=== PATIENT | female | born 1990 | race Caucasian/White ===

== ENCOUNTER → 2017-08-02 15:08 | Outpatient (CLI) | payer OTHER, SELFPAY ==
[2017-08-02 16:30] LABS: Absolute Lymphocyte Count 2.91 X10^3/ul (0.83-4.51); Absolute Neutrophil Count 6.7 X10^3/uL (2.0-7.7); Basophil# 0.01 X10^3/uL; Basophil% 0.1 % (0-1); Eosinophil# 0.16 X10^3/uL; Eosinophils% 1.4 % (0-5); Hematocrit 37.3 % (37-47); Hemoglobin 12.8 g/dl (12.0-15.0); Lymphocyte # 2.91 X10^3/ul (4.0); Lymphocyte % 25.7 % (19-41); Mean Corp Hgb Conc 34.3 g/gl (32-36); Mean Corpuscular Hgb 28.6 pg (27.0-32.0); Mean Corpuscular Volume 83.4 fL (81-99); Mean Platelet Vol. 10.6 fl (6.2-12.0); Monocyte# 1.52 X10^3/uL; Monocyte% 13.4 % (0-10); Neutrophil % 59.2 % (47-70); Platelet Count 326 K/mm3 (150-450); RBC Distribution Width CV 12.2 % (11.6-14.6); RBC Distribution Width SD 36.7 fl (35.1-43.9); Red Blood Count 4.47 M/mm3 (4.2-5.4); White Blood Count 11.3 K/mm3 (4.4-11.0)
[2017-08-02 16:31] LABS: Differential Indicated SCAN CRITERIA MET; POSITIVE COUNT NO; POSITIVE DIFFERENTIAL YES; POSITIVE MORPHOLOGY NO
[2017-08-02 16:55] LABS: Differential Comment SCANNED
[2017-08-02 17:18] LABS: HIV - WCH Non-Reactive (Nonreactive); Rubella IgG 158.2 IU/mL
[2017-08-02 19:44] LABS: Chlamydia Trachomatis by PCR Negative (Negative); Neisserai gonorrhoeae by PCR Negative (Negative); Probe Check PASS; Sample Adequacy Control PASS; Specimen Processing Control PASS
[2017-08-04 05:19] LABS: Rapid Plasmin Reagin (RPR) NONREACTIVE (NONREACTIVE)
[2017-08-04 09:05] LABS: HEPATITIS B SURFACE AG Negative (Negative)
== END ==
PROVIDERS: Visit Provider Obstetrics & Gynecology
DX: Z34.90 Encounter for supervision of normal pregnancy, unspecified, unspecified trimester (principal)
CPT/HCPCS: 36415; 85025; 86592; 86703; 86762; 86850; 86900; 87086; 87340; 87491; 87591

== ENCOUNTER → 2017-11-17 16:22 | Outpatient (CLI) | payer OTHER, SELFPAY | PROVIDERS: Family Provider Family Medicine; PCP Family Medicine; Referring Provider Physician Assistant; Visit Provider Physician Assistant | DX: J02.9 Acute pharyngitis, unspecified (principal) | CPT/HCPCS: 87081 ==

== ENCOUNTER → 2017-12-18 16:46 | Outpatient (CLI) | payer OTHER, SELFPAY ==
[2017-12-18 17:33] LABS: Glucose Challenge Gest 1H 50g 127 mg/dL (70-140)
[2017-12-18 17:36] LABS: Absolute Lymphocyte Count 2.81 X10^3/ul (0.83-4.51); Absolute Neutrophil Count 8.7 X10^3/uL (2.0-7.7); Basophil# 0.01 X10^3/uL; Basophil% 0.1 % (0-1); Eosinophil# 0.14 X10^3/uL; Eosinophils% 1.1 % (0-5); Hematocrit 30.6 % (37-47); Hemoglobin 10.5 g/dl (12.0-15.0); Lymphocyte # 2.81 X10^3/ul (4.0); Lymphocyte % 21.4 % (19-41); Mean Corp Hgb Conc 34.3 g/gl (32-36); Mean Corpuscular Hgb 29.6 pg (27.0-32.0); Mean Corpuscular Volume 86.2 fL (81-99); Mean Platelet Vol. 9.7 fl (6.2-12.0); Monocyte# 1.38 X10^3/uL; Monocyte% 10.5 % (0-10); Neutrophil # 8.71 X10^3/uL (2.7-7.7); Neutrophil % 66.1 % (47-70); Platelet Count 306 K/mm3 (150-450); RBC Distribution Width CV 12.4 % (11.6-14.6); RBC Distribution Width SD 37.3 fl (35.1-43.9); Red Blood Count 3.55 M/mm3 (4.2-5.4); White Blood Count 13.2 K/mm3 (4.4-11.0)
[2017-12-18 17:38] LABS: POSITIVE COUNT NO; POSITIVE DIFFERENTIAL NO; POSITIVE MORPHOLOGY NO
== END ==
PROVIDERS: Nurse Practitioner Women's Health; Family Provider Family Medicine; PCP Family Medicine; Referring Provider Obstetrics & Gynecology; Visit Provider Obstetrics & Gynecology
DX: Z34.90 Encounter for supervision of normal pregnancy, unspecified, unspecified trimester (principal)
CPT/HCPCS: 36415; 82950; 85025

== ENCOUNTER → 2018-02-15 17:51 | Outpatient (CLI) | payer OTHER, SELFPAY ==
[2018-02-15 15:29] VITALS: BMI 26.9
== END ==
PROVIDERS: Family Provider Family Medicine; PCP Family Medicine; Visit Provider Obstetrics & Gynecology
DX: O09.93 Supervision of high risk pregnancy, unspecified, third trimester (principal); Z3A.00 Weeks of gestation of pregnancy not specified
CPT/HCPCS: 87081

== ENCOUNTER 2018-03-19 11:40 | Inpatient (IN) | payer OTHER, SELFPAY ==
[2018-03-16 14:52] VITALS: BMI 26.6
[2018-03-19 11:31] VITALS: BMI 26.4
[2018-03-19 11:41] LABS: ROM Internal Control Test YES-OK TO RESULT pt. (Internal QC); ROM Patient Test POSITIVE (Negative); Record Kit Lot#, ROM+ J7836
[2018-03-19 12:18] LABS: Hematocrit 36.3 % (37-47); Hemoglobin 12.3 g/dl (12.0-15.0); Mean Corp Hgb Conc 33.9 g/gl (32-36); Mean Corpuscular Hgb 29.1 pg (27.0-32.0); Mean Platelet Vol. 10.5 fl (6.2-12.0); Platelet Count 288 K/mm3 (150-450); RBC Distribution Width CV 12.9 % (11.6-14.6); RBC Distribution Width SD 40.3 fl (35.1-43.9); Red Blood Count 4.22 M/mm3 (4.2-5.4); Scan Indicated on CBC? Y/N NO; White Blood Count 11.8 K/mm3 (4.4-11.0)
[2018-03-19] MEDS: miSOPROStol 25 MCG TABLET PO ×2 (12:53→17:26)
[2018-03-19] MEDS: Lactated Ringers 1,000 ML 50 ML IV ×2 (12:54→19:22)
--- NOTE | 2018-03-19 18:21 | PCM.HP.OB ---
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 plan local delivery. (3) Anemia during Status: Acute Comment: Recommend to start Iron (4) Status: Acute Qualifiers: Comment: genetic, carrier, and ntd screening negative. anatomy scan reviewed. echo normal. Rectum again appears prominent. Rest of anatomy appeared normal. FU every 4 weeks to evaluate biometric parameters and anatomy with treatment center. History Date of Admission: 03/19/18 Final ISIDRO: 03/14/18 Gestational age: 40 Weeks and 5 Days History of this : This is a 27 year-old, at 40 weeks gestational age presents IAL PROM. she co clear fluid since this morning and denies any bleeding, has had some contractions. she has had a complicated by abnormal ultrasound of the rectal area. Medical History: Medical History (Last Reviewed 03/16/18 @ 14:50 by Kezia Hart) Back pain M54.9 Fatigue R53.83 Hemorrhoids K64.9 Migraines G43.909 SOB (shortness of breath) R06.02 Anxiety F41.9 Chronic eczema L30.9 Depression F32.9 Surgical History: Surgical History (Last Reviewed 03/16/18 @ 14:50 by Kezia Hart) History of tonsillectomy and adenoidectomy Onset Date: ~2004 Z98.890 Allergies No Known Allergies Allergy (Verified 03/16/18 14:50) Home Medications: Home Medications vitamin,calcium,crwouikx-sphw-jgazu acid tablet 1 tab PO QDAY 08/02/17 breast pump See Dose Instructions .ROUTE .MEDSUPPLY #1 ea 03/14/18 Ferrous Sulfate [Iron] 325 mg PO DAILY 03/19/18 Smoking Status: Never smoker Number of Fetus(es): 1 Heart Tracin moderate variability reactive no decelerations category I tracing [place]: regular History Past Pregnancies: Past Pregnancies Delivery Date Name GA/Weeks Outcome Route Weight Gender Labor Length Anesthesia Delivery Location Provider FOB Labs: Mom's Labs & Results 03/19/18 03/19/18 03/19/18 11:25 12:00 12:00 WBC 11.8 H RBC 4.22 Hgb 12.3 Hct 36.3 L MCV 86.0 MCH 29.1 MCHC 33.9 RDW 12.9 RDW Differential 40.3 Plt Count 288 MPV 10.5 Vag Amniotic Fld Detect POSITIVE H Blood Type A POSITIVE Antibody Screen NEGATIVE Course Did the patient receive Yes care? Labs Blood Type: A RH: POSITIVE RPR/VDRL/Syphilis Nonreactive Rubella status Immune HbSAg Negative Date Done: 08/02/17 Chlamydia Negative Gonorrhea Negative HIV/AIDS Non-Reactive Group B Strep: Negative Current Obstetrical History Gestational Diabetes No Incompetent Cervix No Infertility No IUGR No Macrosomia No Hypertension/Pre-eclampsia No Placenta Previa/Abruption No PTL/PROM No Uterine anomaly No Oligohydramnios No Polyhydramnios No Multiple gestation No Past Medical History Asthma No Diabetes No Hypertension No Heart disease No Mitral valve prolapse No Neurologic/Seizure disorder/ No Migraines Kidney disease No Liver disease No Varicosities No Clotting disorders/Hx of DVT No Thyroid Dysfunction No Other medical diseases No Psychiatric disorders No Major trauma No Abnormal PAP smear No Sleep apnea No Mammogram in the last 2 years No Social History Marital Status: Alleged father Augusto Mays Hx Smoking No Smoking Status Never smoker Expected Delivery Method: Spontaneous Vaginal Review of Systems Constitutional: Denies: Fever, Malaise Eyes: Denies: Blurred vision, Vision Change HEENT: Denies: Head Aches, Visual Changes Cardiovascular: Denies: Chest Pain, Palpitations Respiratory: Denies: Cough, Shortness of Breath, Wheezing Gastrointestinal: Denies: Abdominal Pain, Diarrhea, Nausea, Vomiting Genitourinary: Denies: Dysuria, Hematuria Musculoskeletal: Denies: Joint Pain, Muscle pain Skin: Denies: Lesions, Rash Neurological: Denies: Blurred vision, Focal weakness, Headaches Psychiatric: Denies: Anxiety, Depression Endocrine: Denies: Heat/ Cold Intolerance Hematologic/ Lymphatic: Denies: Easy Bruising, Easy Bleeding Physical Exam General: Alert, Cooperative, No apparent distress HEENT: Atraumatic, Normocephalic. Negative for: Thyromegaly, Lymphadenopathy Cardiovascular: Regular rate Lungs: Normal air movement Abdomen: Soft, Non Tender, Gravid Neurological: Deep Tendon Reflexes 2+/4 and Symmetrical, Neuro grossly intact. 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 Negative for: Vulvar lesions Estimated gestational size: Appropriate for gestational size Presentation: Cephalic Assessment/Plan All Active Problems (Last Reviewed 03/16/18 @ 14:50 by Kezia Hart) High-risk in third trimester (Acute) anomaly (Acute) Anemia during (Acute) (Acute) Conjunctivitis (Resolved) Conjunctivitis (Resolved) Low lying placenta nos or without hemorrhage, unspecified trimester (Resolved) Pharyngitis (Resolved) Sinusitis (Resolved) Supervision of normal (Resolved) This is a 27 year-old, at 40 weeks gestational age presents with PROM Patient presents IOL, plan expectant management for , cytotec then pitocin Pain management: plans epidural GBS negative. Management of any complications: rectal abnormality on ultrasound- peds aware I have reviewed the [facility] and made any clinically relevant updates.
--- NOTE | 2018-03-19 18:24 | HP.PCM_ITS ---
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 plan local delivery. (3) Anemia during Status: Acute Comment: Recommend to start Iron (4) Status: Acute Qualifiers: Comment: genetic, carrier, and ntd screening negative. anatomy scan reviewed. echo normal. Rectum again appears prominent. Rest of anatomy appeared normal. FU every 4 weeks to evaluate biometric parameters and anatomy with treatment center. History Date of Admission: 03/19/18 Final ISIDRO: 03/14/18 Gestational age: 40 Weeks and 5 Days History of this : This is a 27 year-old, at 40 weeks gestational age presents IAL PROM. she co clear fluid since this morning and denies any bleeding, has had some contractions. she has had a complicated by abnormal ultrasound of the rectal area. Medical History: Medical History (Last Reviewed 03/16/18 @ 14:50 by Kezia Hart) Back pain M54.9 Fatigue R53.83 Hemorrhoids K64.9 Migraines G43.909 SOB (shortness of breath) R06.02 Anxiety F41.9 Chronic eczema L30.9 Depression F32.9 Surgical History: Surgical History (Last Reviewed 03/16/18 @ 14:50 by Kezia Hart) History of tonsillectomy and adenoidectomy Onset Date: ~2004 Z98.890 Allergies No Known Allergies Allergy (Verified 03/16/18 14:50) Home Medications: Home Medications vitamin,calcium,hjxomyqv-uzxb-etiyl acid tablet 1 tab PO QDAY 08/02/17 breast pump See Dose Instructions .ROUTE .MEDSUPPLY #1 ea 03/14/18 Ferrous Sulfate [Iron] 325 mg PO DAILY 03/19/18 Smoking Status: Never smoker Number of Fetus(es): 1 Heart Tracin moderate variability reactive no decelerations category I tracing [place]: regular History Past Pregnancies: Past Pregnancies Delivery Date Name GA/Weeks Outcome Route Weight Gender Labor Length Anesthesia Delivery Location Provider FOB Labs: Mom's Labs & Results 03/19/18 03/19/18 03/19/18 11:25 12:00 12:00 WBC 11.8 H RBC 4.22 Hgb 12.3 Hct 36.3 L MCV 86.0 MCH 29.1 MCHC 33.9 RDW 12.9 RDW Differential 40.3 Plt Count 288 MPV 10.5 Vag Amniotic Fld Detect POSITIVE H Blood Type A POSITIVE Antibody Screen NEGATIVE Course Did the patient receive Yes care? Labs Blood Type: A RH: POSITIVE RPR/VDRL/Syphilis Nonreactive Rubella status Immune HbSAg Negative Date Done: 08/02/17 Chlamydia Negative Gonorrhea Negative HIV/AIDS Non-Reactive Group B Strep: Negative Current Obstetrical History Gestational Diabetes No Incompetent Cervix No Infertility No IUGR No Macrosomia No Hypertension/Pre-eclampsia No Placenta Previa/Abruption No PTL/PROM No Uterine anomaly No Oligohydramnios No Polyhydramnios No Multiple gestation No Past Medical History Asthma No Diabetes No Hypertension No Heart disease No Mitral valve prolapse No Neurologic/Seizure disorder/ No Migraines Kidney disease No Liver disease No Varicosities No Clotting disorders/Hx of DVT No Thyroid Dysfunction No Other medical diseases No Psychiatric disorders No Major trauma No Abnormal PAP smear No Sleep apnea No Mammogram in the last 2 years No Social History Marital Status: Alleged father Augusto Mays Hx Smoking No Smoking Status Never smoker Expected Delivery Method: Spontaneous Vaginal Review of Systems Constitutional: Denies: Fever, Malaise Eyes: Denies: Blurred vision, Vision Change HEENT: Denies: Head Aches, Visual Changes Cardiovascular: Denies: Chest Pain, Palpitations Respiratory: Denies: Cough, Shortness of Breath, Wheezing Gastrointestinal: Denies: Abdominal Pain, Diarrhea, Nausea, Vomiting Genitourinary: Denies: Dysuria, Hematuria Musculoskeletal: Denies: Joint Pain, Muscle pain Skin: Denies: Lesions, Rash Neurological: Denies: Blurred vision, Focal weakness, Headaches Psychiatric: Denies: Anxiety, Depression Endocrine: Denies: Heat/ Cold Intolerance Hematologic/ Lymphatic: Denies: Easy Bruising, Easy Bleeding Physical Exam General: Alert, Cooperative, No apparent distress HEENT: Atraumatic, Normocephalic. Negative for: Thyromegaly, Lymphadenopathy Cardiovascular: Regular rate Lungs: Normal air movement Abdomen: Soft, Non Tender, Gravid Neurological: Deep Tendon Reflexes 2+/4 and Symmetrical, Neuro grossly intact. 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 Negative for: Vulvar lesions Estimated gestational size: Appropriate for gestational size Presentation: Cephalic Assessment/Plan All Active Problems (Last Reviewed 03/16/18 @ 14:50 by Kezia Hart) High-risk in third trimester (Acute) anomaly (Acute) Anemia during (Acute) (Acute) Conjunctivitis (Resolved) Conjunctivitis (Resolved) Low lying placenta nos or without hemorrhage, unspecified trimester (Resolved) Pharyngitis (Resolved) Sinusitis (Resolved) Supervision of normal (Resolved) This is a 27 year-old, at 40 weeks gestational age presents with PROM Patient presents IOL, plan expectant management for , cytotec then pitocin Pain management: plans epidural GBS negative. Management of any complications: rectal abnormality on ultrasound- peds aware I have reviewed the [facility] and made any clinically relevant updates.
[2018-03-19] MEDS: fentaNYL-bupivacaine (epidural) 100 ML BAG EPIDURAL ×2 (19:24→23:06)
[2018-03-19] MEDS: Amnioinfusion- 0.9% NS 1,000 ML IV.SOLN. INTRA-UTER (21:15)
[2018-03-19] MEDS: Oxytocin 30 units/NS 500 ml 30 UNITS/500 ML IV.SOLN IV (23:21)
[2018-03-20] MEDS: Lactated Ringers 1,000 ML 50 ML IV (00:23)
--- NOTE | 2018-03-20 03:12 | PCM.PN.BLA ---
Progress Note patient complete cat I tracing isolated variable- patient pushed once and had vasovagal episode, I attempted to grab him to break his fall but was unable to completely catch him, fell onto floor and hit the back of his head. SCHEDULING CLERK called but then cancelled due the patient being awake and coherent, immediate transport to ER for evaluation, discussed with Dr Lazaro, ER attending, on the phone. patient to labor down while waiting. maternal status stable
--- NOTE | 2018-03-20 03:16 | PN_ITS ---
Progress Note patient complete cat I tracing isolated variable- patient pushed once and had vasovagal episode, I attempted to grab him to break his fall but was unable to completely catch him, fell onto floor and hit the back of his head. GATE CLERK called but then cancelled due the patient being awake and coherent, immediate transport to ER for evaluation, discussed with Dr Lazaro, ER attending, on the phone. patient to labor down while waiting. maternal status stable
[2018-03-20] MEDS: Oxytocin 30 units/NS 500 ml 30 UNITS/500 ML IV.SOLN 334 UNITS IV (04:43)
[2018-03-20] MEDS: Oxytocin 30 units/NS 500 ml 30 UNITS/500 ML IV.SOLN 167 UNITS IV (05:15)
[2018-03-20] MEDS: 0.9% Saline Lock 10 ML Syringe IV (06:20)
--- NOTE | 2018-03-20 08:30 | PCM.OB.VAG ---
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 plan local delivery. (3) Anemia during Status: Acute Comment: Recommend to start Iron (4) Status: Acute Qualifiers: Comment: genetic, carrier, and ntd screening negative. anatomy scan reviewed. echo normal. Rectum again appears prominent. Rest of anatomy appeared normal. FU every 4 weeks to evaluate biometric parameters and anatomy with treatment center. Vaginal Delivery Maternal Presentation: Active Labor prom Method of Induction: Pitocin, Cytotec Medical Reason for Induction: Post term Amniotic Membrane Rupture Type: Spontaneous at home Amniotic Fluid Description: Clear Final MARIO: 03/14/18 Gestational age: 41 Weeks and 0 Days Date of Procedure: 03/20/18 Pre-Operative Diagnosis: ial prom Post-Operative Diagnosis: same Surgery/ Procedure Performed: Spontaneous Vaginal Delivery Type of Anesthesia: Epidural Description of Procedure: Patient began pushing and delivered the head in the TALYA presentation. The head was delivered atraumatically. The anterior and posterior shoulders delivered without complication followed by the rest of the infant and the infant was placed on the maternal abdomen. Delayed cord clamping was employed for approximately 60 seconds. Cord was clamped and cut and gentle traction was applied to the cord and the placenta delivered spontaneously immediately following it was noted to be intact with three-vessel cord. The perineum and vagina were inspected and noted to have a second degree laceration thta was repaired in the usual fashion. Patient and infant tolerated delivery well. Presentation: TALYA Placental Delivery Description: Spontaneous Placenta Disposition: [facility] Infant A gender: Male Episiotomy Description: None Laceration: Perineal Extension/lac, 2nd degree Medications given after delivery: IV Pitocin Complications: None
[2018-03-20 11:39] VITALS: BP 107/65; PULSE 79; RESP 14; TEMP 36.7
[2018-03-20] MEDS: Senna/Docusate Sodium 1 Tablet PO (13:28)
[2018-03-20] MEDS: Naproxen 250 MG Tablet PO ×2 (13:28→21:13)
[2018-03-20] MEDS: Ferrous Sulfate 325 MG Tablet PO (13:28)
[2018-03-20] MEDS: Prenatal Vits Tablet 1 TABLET PO (13:28)
[2018-03-20 17:00] VITALS: BP 119/78; PULSE 79; RESP 18; TEMP 36.1
[2018-03-20 19:50] VITALS: BP 121/61; PULSE 83; RESP 18; TEMP 36.5; O2SAT 97
[2018-03-21] VITALS: BP 102/59; PULSE 78; RESP 16; TEMP 36.8
[2018-03-21] MEDS: Acetaminophen 500 MG Tablet 1000 MG PO (03:09)
[2018-03-21 03:45] VITALS: BP 112/79; PULSE 86; RESP 18; TEMP 36.8
--- NOTE | 2018-03-21 08:36 | PCM.PN.OB ---
Subjective: doing well. No CP, SOB. - Physical Exam General: Alert, Oriented x3 Abdomen: Soft, Non Tender, - - FF below U Vital Signs Temp Pulse Resp BP Pulse Ox 98.3 F 86 18 112/79 97 03/21/18 03:45 03/21/18 03:45 03/21/18 03:45 03/21/18 03:45 03/20/18 19:50 Oxygen Delivery Method Room Air Weight: 163 lb 12.855 oz Body Mass Index (BMI) 26.4 Intake and Output for Last 24 Hours 03/19/18 03/20/18 03/21/18 23:59 23:59 23:59 Intake Total 2255 / 2255 2266 / 2266 Output Total 1250 / 1250 Balance 2255 / 2255 1016 / 1016 Medical Necessity - Tobacco Use Smoking Status: Never smoker Assessment/Plan All Active Problems (Last Reviewed 03/16/18 @ 14:50 by Kezia Hart) High-risk in third trimester (Acute) anomaly (Acute) Anemia during (Acute) (Acute) Conjunctivitis (Resolved) Conjunctivitis (Resolved) Low lying placenta nos or without hemorrhage, unspecified trimester (Resolved) Pharyngitis (Resolved) Sinusitis (Resolved) Supervision of normal (Resolved) PPD#1: routine care. .
[2018-03-21 08:58] VITALS: BP 113/66; PULSE 64; RESP 18; TEMP 36.4; O2SAT 98
[2018-03-21] MEDS: Naproxen 250 MG Tablet PO ×2 (11:19→20:17)
[2018-03-21] MEDS: Prenatal Vits Tablet 1 TABLET PO (11:22)
[2018-03-21] MEDS: Ferrous Sulfate 325 MG Tablet PO (11:22)
[2018-03-21 14:00] VITALS: BP 110/59; PULSE 77; RESP 18; TEMP 37; O2SAT 97
--- NOTE | 2018-03-21 14:52 | CASEMGMT ---
Social Work Labor and Delivery Verbal notification from RN Lani Park today that patient/mother of baby (MOB) answered yes to PHQ2 depression screening. Plan: Will plan to see MOB to review result of PHQ9 when completed, as well as to offer resources and support as indicated. -THELMA Woo, LEGAL RECOVERY SPECIALIST
[2018-03-21 20:22] VITALS: BP 114/69; PULSE 70; RESP 16; TEMP 36.7; O2SAT 99
[2018-03-22 02:00] VITALS: BP 112/62; PULSE 64; RESP 16; TEMP 36.7; O2SAT 100
[2018-03-22 04:01] LABS: Bedside Glucose 60 mg/dL (70-110)
--- NOTE | 2018-03-22 04:15 | NURSING ---
FOB called RN and stated pt was shaking really bad as RN entered room, pt was lying in bed, covered up in blankets and shivering excessively. pt stated she ate two bites of a doughnut, got up to restroom, felt cold then started shaking. vitals obtained 0349 BP 133/72 temp 97.1 HR 76 resp 24 pulse ox 99% on room air. fundus assessed firm, midline and two below. lochia small. pt denies pain. 0352 BP 122/77 HR 73 resp 20 pulse ox 100% on room air. 0353 BGT 60, juice, cookies and peanut butter provided. warm blanket applied. after eating, shivering noted to stop. pt reports feeing better. will continue to monitor
--- NOTE | 2018-03-22 07:47 | PCM.PN.OB ---
Subjective: NO CP, SOB. Did have shakiness in night, blood sugar 60. She then ate and symptoms resolved. Feels fine this am. Plans home today. - Physical Exam General: Alert, Oriented x3 Abdomen: Soft, Non Tender, - - FF below U Vital Signs Temp Pulse Resp BP Pulse Ox 98.1 F 64 16 112/62 100 03/22/18 02:00 03/22/18 02:00 03/22/18 02:00 03/22/18 02:00 03/22/18 02:00 Oxygen Delivery Method Room Air Weight: 163 lb 12.855 oz Body Mass Index (BMI) 26.4 Intake and Output for Last 24 Hours 03/20/18 03/21/18 03/22/18 23:59 23:59 23:59 Intake Total 2266 / 2266 Output Total 1250 / 1250 Balance 1016 / 1016 POC Glucose 03/22/18 03:55 POC Glucose 60 L Medical Necessity - Tobacco Use Smoking Status: Never smoker Assessment/Plan All Active Problems (Last Reviewed 03/16/18 @ 14:50 by Kezia Hart) High-risk in third trimester (Acute) anomaly (Acute) Anemia during (Acute) (Acute) Conjunctivitis (Resolved) Conjunctivitis (Resolved) Low lying placenta nos or without hemorrhage, unspecified trimester (Resolved) Pharyngitis (Resolved) Sinusitis (Resolved) Supervision of normal (Resolved) PPD #2:Routine care. Encouraged small frequent meals. Force fluids. Call office if symptoms recur. Home today.
--- NOTE | 2018-03-22 07:51 | DCINST_ITS ---
Additional Instructions: If you experience any of the following, contact your healthcare provider. * Bleeding that soaks a pad every hour for 2 hours * Fever 100.4 or higher * Unrelieved incision or abdominal pain * Swelling, redness, discharge or bleeding from your incision or episiotomy site * Your incision begins to separate * Problems urinating (including inability to urinate or burning while urinating). * Visual changes * Severe headache * Flu-like symptoms * Pain or redness in one of both of your breasts * Pain, warmth, tenderness or swelling in your legs, especially the calf area * Frequent nausea and vomiting * Symptoms of depression or anxiety If you experience any of the following, call 911 or go to the nearest Emergency Room. * Chest pain * Problems breathing * Seizure activity * Partial or complete paralysis of a body part, slurred speech, weakness or drooping of the face, or a sudden inability to walk or hold your balance Allergies/Adverse Reactions: Allergies No Known Allergies Allergy (Verified 03/16/18 14:50) Medications to take at Discharge vitamin,calcium,tsttgdeq-trix-bmnip acid tablet 1 tab PO QDAY 08/02/17 breast pump See Dose Instructions .ROUTE .MEDSUPPLY #1 ea 03/14/18 Ferrous Sulfate [Iron] 325 mg PO DAILY 03/19/18 Primary Care Physician: Cornelius Dove MD [Primary Care Provider] - Test Results: Test results from this visit will be discussed in further detail at your follow- up appointment, if applicable.
--- NOTE | 2018-03-22 07:51 | PCM.DCVAG ---
Additional Instructions: If you experience any of the following, contact your healthcare provider. Bleeding that soaks a pad every hour for 2 hours Fever 100.4 or higher Unrelieved incision or abdominal pain Swelling, redness, discharge or bleeding from your incision or episiotomy site Your incision begins to separate Problems urinating (including inability to urinate or burning while urinating). Visual changes Severe headache Flu-like symptoms Pain or redness in one of both of your breasts Pain, warmth, tenderness or swelling in your legs, especially the calf area Frequent nausea and vomiting Symptoms of depression or anxiety If you experience any of the following, call 911 or go to the nearest Emergency Room. Chest pain Problems breathing Seizure activity Partial or complete paralysis of a body part, slurred speech, weakness or drooping of the face, or a sudden inability to walk or hold your balance Allergies/Adverse Reactions: Allergies No Known Allergies Allergy (Verified 03/16/18 14:50) Medications to take at Discharge vitamin,calcium,fjgufung-gpxk-ddvgq acid tablet 1 tab PO QDAY 08/02/17 breast pump See Dose Instructions .ROUTE .MEDSUPPLY #1 ea 03/14/18 Ferrous Sulfate [Iron] 325 mg PO DAILY 03/19/18 Primary Care Physician: Cornelius Dove MD [Primary Care Provider] - Test Results: Test results from this visit will be discussed in further detail at your follow-up appointment, if applicable.
--- NOTE | 2018-03-22 07:52 | PCM.DC.SUM ---
Discharge Date and Diagnosis Date of Admission: 03/19/18 Hospital Course and Treatment Consultations 03/19/18 11:42 Consult: Anesthesia Routine Comment: Reason For Exam: labor Summary of Care Provided: The patient is a 27 year old F SROM and induction with cytotec, pitocin. . Normal pp course. 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 DC home, routine care. [] - Physical Exam Vital Signs Temp Pulse Resp BP Pulse Ox 98.1 F 64 16 112/62 100 03/22/18 02:00 03/22/18 02:00 03/22/18 02:00 03/22/18 02:00 03/22/18 02:00 Oxygen Delivery Method Room Air Weight: 163 lb 12.855 oz Body Mass Index (BMI) 26.4 Intake and Output for Last 24 Hours 03/20/18 03/21/18 03/22/18 23:59 23:59 23:59 Intake Total 2266 / 2266 Output Total 1250 / 1250 Balance 1016 / 1016 POC Glucose 03/22/18 03:55 POC Glucose 60 L Home Medications: Medications to take at Discharge vitamin,calcium,rhcckefn-ubsw-adwww acid tablet 1 tab PO QDAY 08/02/17 breast pump See Dose Instructions .ROUTE .MEDSUPPLY #1 ea 03/14/18 Ferrous Sulfate [Iron] 325 mg PO DAILY 03/19/18 Primary Care Physician: Cornelius Dove MD [Primary Care Provider] - Medical Necessity - Tobacco Use Smoking Status: Never smoker Meaningful Use Info Meaningful Use Diagnoses (Choose all that apply): None applicable
[2018-03-22 08:10] VITALS: BP 115/60; PULSE 83; RESP 18; TEMP 36.4; O2SAT 97
--- NOTE | 2018-03-22 10:28 | CASEMGMT ---
Social Work Labor and Delivery Chart reviewed and consult received for PHQ9. Presented to patient/mother of baby (MOB) room. MOB and father of baby (FOB) present in room. Discussed reason for visit and inquired if now is a good time to meet. MOB pleasant and reports is coming soon. 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 MOB in agreement and reports to have no discharge time in mind. Plan: Will follow up with MOB later today. -THELMA Woo, CABLE TELEVISION ACCESS COORDINATOR
[2018-03-22] MEDS: Ferrous Sulfate 325 MG Tablet PO (11:57)
[2018-03-22] MEDS: Prenatal Vits Tablet 1 TABLET PO (11:57)
[2018-03-22] MEDS: Senna/Docusate Sodium 1 Tablet PO (11:57)
[2018-03-22] MEDS: Naproxen 250 MG Tablet PO (12:01)
[2018-03-22 14:35] VITALS: BP 119/68; PULSE 80; RESP 16; TEMP 36.7; O2SAT 98
== END 2018-03-22 15:30 | disposition home or self-care (01) | DRG 807 ==
LOC: WPOUT 11:43 → WP 11:44
PROVIDERS: Admitting Provider Obstetrics & Gynecology; Family Provider Family Medicine; PCP Family Medicine; Referring Provider Obstetrics & Gynecology; Visit Provider Obstetrics & Gynecology
DX: O48.0 Post-term pregnancy (principal); O70.1 Second degree perineal laceration during delivery; O99.02 Anemia complicating childbirth; D64.9 Anemia, unspecified; O66.3 Obstructed labor due to other abnormalities of fetus; Z3A.41 41 weeks gestation of pregnancy; Z37.0 Single live birth
CPT/HCPCS: 59025; 59050; 82962; 84112; 85027; 86850; 86900; 99218; J7030; J7120; A4216; G0378

== ENCOUNTER 2018-03-24 09:30 | Outpatient (CLI) | payer OTHER, SELFPAY | END 2018-03-24 10:50 | disposition home or self-care (01) | LOC: WPOUT 09:33 → WP 09:33 | PROVIDERS: Family Provider Family Medicine; PCP Family Medicine; Referring Provider Obstetrics & Gynecology; Visit Provider Obstetrics & Gynecology | DX: Z39.1 Encounter for care and examination of lactating mother (principal) | CPT/HCPCS: 96152 ==

== ENCOUNTER → 2018-04-06 17:07 | Outpatient (CLI) | payer OTHER, SELFPAY ==
[2018-04-06 14:23] VITALS: BMI 26.4
== END ==
PROVIDERS: Family Provider Family Medicine; PCP Family Medicine; Referring Provider Obstetrics & Gynecology; Visit Provider Obstetrics & Gynecology
DX: R30.0 Dysuria (principal); N89.8 Other specified noninflammatory disorders of vagina
CPT/HCPCS: 87086; 87088

== ENCOUNTER → 2018-05-01 15:43 | Outpatient (CLI) | payer OTHER, SELFPAY ==
[2018-05-01 08:46] VITALS: BMI 26.4
[2018-05-07 13:01] LABS: HPV Reflexed? NOT INDICATED
== END ==
PROVIDERS: Family Provider Family Medicine; PCP Family Medicine; Referring Provider Obstetrics & Gynecology; Visit Provider Obstetrics & Gynecology
DX: Z12.4 Encounter for screening for malignant neoplasm of cervix (principal)
CPT/HCPCS: 87624; 88175; G0145

== ENCOUNTER → 2018-10-13 14:34 | Outpatient (CLI) | payer OTHER, SELFPAY ==
[2018-10-13 10:50] VITALS: BMI 26.4
== END ==
PROVIDERS: Family Provider Family Medicine; PCP Family Medicine; Referring Provider Nurse Practitioner Family; Visit Provider Nurse Practitioner Family
DX: J02.9 Acute pharyngitis, unspecified (principal)
CPT/HCPCS: 87081

== ENCOUNTER → 2019-12-06 | Outpatient (CLI) | payer OTHER, SELFPAY ==
[2019-09-10 09:53] VITALS: BMI 26.4
[2019-12-06 18:08] LABS: Hematocrit 40.5 % (37-47); Hemoglobin 13.1 g/dL (12.0-15.0); Mean Corp Hgb Conc 32.3 g/dL (32-36); Mean Corpuscular Hgb 27.5 pg (27.0-32.0); Mean Corpuscular Volume 85.1 fL (81-99); Mean Platelet Vol. 9.9 fl (6.2-12.0); Platelet Count 315 K/mm3 (150-450); RBC Distribution Width CV 12.1 % (11.6-14.6); RBC Distribution Width SD 37.3 fl (35.1-43.9); Red Blood Count 4.76 M/mm3 (4.2-5.4); White Blood Count 9.7 K/mm3 (4.4-11.0)
[2019-12-06 18:42] LABS: hCG Titer Quant., Serum < 1 mIU/mL (1-3)
[2019-12-06 18:51] LABS: Anion Gap 6 (5-15); BUN 15 mg/dL (7-18); BUN/Creat Ratio 23.5 RATIO (10-20); Chloride 106 mmol/L (98-107); Creatinine, Serum 0.64 mg/dL (0.55-1.02); EST Glomerular Filtration Rate 116 mL/min (>60); Est Glom Filt Rate - Afr Amer 141 mL/min (>60); Glucose 136 mg/dL (74-106); Potassium 3.4 mmol/L (3.5-5.1); Sodium Level 137 mmol/L (136-145); Thyroid Stim Hormone (TSH) 2.56 uIU/mL (0.358-3.74)
== END | disposition home or self-care (01) ==
PROVIDERS: PCP Family Medicine; Visit Provider Registered Nurse
DX: R23.2 Flushing (principal)
CPT/HCPCS: 80048; 84443; 84702; 85027

== ENCOUNTER 2020-06-22 19:12 | Emergency (ER) | payer OTHER, SELFPAY ==
[2019-09-10 09:53] VITALS: BMI 26.4
[2020-06-22 19:13] VITALS: BP 111/66; PULSE 77; RESP 16; TEMP 35.7; O2SAT 95; BMI 29.0
--- NOTE | 2020-06-22 19:40 | RAD_ITS ---
INDICATION: foreign body, pt fell onto broken glass. EXAMINATION/TECHNIQUE: X-RAY - RIGHT XR Hand Min 3 Views COMPARISON: None. FINDINGS: No acute fracture or malalignment. No blastic or lytic lesions. No degenerative changes are seen. The soft tissues are unremarkable. No radiopaque foreign body. RAD/Hand Min 3 Views IMPRESSION: No acute radiographic abnormalities. Specifically, no radiopaque foreign body. Electronically Signed: Senthil Gipson MD at 19:55 EDT Tel , Service support ,
--- NOTE | 2020-06-22 19:47 | EX.ED.GENINJ ---
HPI History of Present Illness Chief Complaint: Laceration Informant: patient Narrative Narrative: 29-year-old female presents out of concerns for glass in her hand. She states she leaned on the glass door sustained 2 lacerations to the palm of her right hand. She is wondering if there is glass in them. She notes her tetanus is up-to-date. She denies any loss of function. She notes pain when she flexes the fingers. [facility] Medical History (Updated 06/22/20 @ 20:[address] Kilo Yousif DO) Anxiety Back pain Chronic eczema Depression Fatigue Hemorrhoids Migraines SOB (shortness of breath) Home Medications prenat.vits,tena,zsl-nimi-foyxw 1 tab PO QDAY 08/02/17 [History Last Taken 03/19/18] ferrous sulfate 325 mg PO DAILY 03/19/18 [History Last Taken 03/19/18] sertraline 100 mg tablet 100 mg PO DAILY #90 tab 09/17/19 [Rx Last Taken Unknown] Allergy/AdvReac Type Severity Reaction Status Date / Time No Known Allergies Allergy Verified 06/22/20 19:13 Family History Father Heart disease Mother Breast cancer, Onset Age: 48 Stage 2 Diabetes Heart disease CVA (cerebral vascular accident) Grandmother Heart disease Other Arthritis Lung disease Surgical History History of tonsillectomy and adenoidectomy (~2004) Social History adopted: No household members: spouse housing: house number of children: 0 current occupational status: employed 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 pets and animals: No leisure activities: exercise history of recent travel: No Smoking Status: Never smoker second hand exposure: No alcohol intake: current details: every day- glass of wine substance use type: does not use well-balanced diet: daily or most days caffeine: Yes during the past year weight has: remained stable what type of physical activity do you participate in: walking frequency: 3-4 times per week seatbelt use: always do you feel safe at home: Yes additional social history: - 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[employer], [employer]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 [employer] ROS ROS ED Constitutional Constitutional ED: Denies chills or weight loss Eyes Eyes: Denies change in vision or diplopia ENT ENT ED: Denies ear pain, rhinorrhea or sore throat Cardiovascular Cardiovascular: Denies chest pain, orthopnea, palpitations or racing heartbeat Respiratory/Chest Respiratory/Chest: Denies cough, dyspnea or orthopnea Gastrointestinal Gastrointestinal: Denies abdominal pain, diarrhea, nausea or vomiting Genitourinary Genitourinary ED: Denies dysuria, hematuria or urinary frequency Musculoskeletal Musculoskeletal: Denies arthralgias or myalgias Integumentary Reports other Details: See history of present illness ; Denies abscess or rash Neurologic Neurologic: Denies headache(s) or weakness Psychiatric Psychiatric: Denies anxiety, depression, suicidal ideation or suicidal thoughts Endocrine Endocrinology: Denies polydipsia, polyphagia or polyuria Allergic/Immunologic Allergic/Immunologic ED: Denies mouth swelling, tongue swelling or urticaria EXAM Physical Exam Const Vital Signs: 06/22/20 19:13 Temperature 96.2 F L Temperature Source Temporal Pulse Rate 77 Respiratory Rate 16 Blood Pressure 111/66 Blood Pressure Mean 81 Pulse Ox 95 Oxygen Delivery Method Room Air Positive well nourished and well developed General Appearance ED: well developed HEENT Reports normocephalic, head/scalp atraumatic and moist mucous membranes Eyes PERRL and EOMs intact bilaterally Neck no lymphadenopathy, supple and no JVD Resp normal respiratory effort and clear to auscultation bilaterally Cardio regular rate, regular rhythm and no murmurs GI normal to inspection, nondistended, normoactive bowel sounds and non-tender Palpation: soft Back/Spine no CVA tenderness and normal ROM Extremity normal to inspection Extremity Narrative: There are 2 puncture wounds to the palmar aspect of the right hand. Tendon function appears normal. General Extremety ED: Negative for edema General Extremity: Negative for edema Neuro oriented x3 and CN's II-XII intact bilaterally Sensorium / Orientation: alert Motor Exam: strength 5/5 throughout Psych mental status grossly normal Mood & Affect: Negative for depressed or tearful Skin no rashes or lesions noted and no wounds MDM MDM MDM Narrative Medical decision making narrative: My interpretation of the plain films of the hand is no radiopaque foreign body noted. Wound was local anesthetized using 1% lidocaine. I could feel something sharp and was curious if it was a small piece of glass. It end up being a small splinter. This was removed. Wound was dressed with bacitracin. Local wound care discussed with patient follow-up as needed return if worsening or concerns Radiography Diagnostic Testing: Radiology Impression Hand X-Ray 06/22/20 19:40 IMPRESSION: No acute radiographic abnormalities. Specifically, no radiopaque foreign body. Electronically Signed: Senthil Gipson MD at 19:55 EDT Tel , Service support , Discharge Plan Triage Chief Complaint: Laceration ED Provider: Kilo Yousif Dx/Rx/DC Orders Clinical Impression: Superficial laceration of right hand, Splinter in skin Instructions: ED Foreign Body Soft Tissue, ED Laceration Small or ... Prescriptions: No Action prenat.vits,tena,tim-lgem-fsklw [ Vitamin] tablet 1 tab PO QDAY RF: 0 ferrous sulfate 325 MG tablet 325 mg PO DAILY RF: 0 sertraline [Zoloft] 100 mg tablet 100 mg PO DAILY Qty: 90 RF: 4 Primary Care Provider: Cornelius Dove Referrals: Cornelius Dove MD [Primary Care Provider] - As Needed Disposition Disposition: Home, self care
[2020-06-22] MEDS: Lidocaine 1% (20 ml mdv) 20 ML Vial INFILT (19:52)
== END 2020-06-22 20:45 | disposition home or self-care (01) ==
PROVIDERS: Emergency Provider Emergency Medicine
DX: S61.441A Puncture wound with foreign body of right hand, initial encounter (principal); W25.XXXA Contact with sharp glass, initial encounter; Y93.9 Activity, unspecified; Y92.9 Unspecified place or not applicable; Y99.9 Unspecified external cause status; Z79.899 Other long term (current) drug therapy; F32.9 Major depressive disorder, single episode, unspecified; F41.9 Anxiety disorder, unspecified
CPT/HCPCS: 73130; 99284

== ENCOUNTER → 2020-09-21 15:23 | Outpatient (CLI) | payer OTHER, SELFPAY ==
[2020-09-21 14:30] VITALS: BMI 29.0
[2020-09-21 15:54] LABS: Absolute Lymphocyte Count 3.04 X10^3/uL (0.83-4.51); Absolute Neutrophil Count 7.3 X10^3/uL (2.0-7.7); Basophil# 0.02 X10^3/uL; Basophil% 0.2 % (0-1); Eosinophil# 0.14 X10^3/uL; Eosinophils% 1.2 % (0-5); Hematocrit 36.7 % (37-47); Hemoglobin 12.6 g/dL (12.0-15.0); Lymphocyte # 3.04 X10^3/ul (0.83-4.51); Lymphocyte % 25.5 % (19-41); Mean Corp Hgb Conc 34.3 g/dL (32-36); Mean Corpuscular Hgb 28.4 pg (27.0-32.0); Mean Corpuscular Volume 82.8 fL (81-99); Mean Platelet Vol. 9.7 fl (6.2-12.0); Monocyte# 1.44 X10^3/uL; Monocyte% 12.1 % (0-10); NRBC Flagged by Analyzer 0 % (0-5); Neutrophil # 7.27 X10^3/uL (2.7-7.7); Neutrophil % 60.7 % (47-70); Platelet Count 318 K/mm3 (150-450); RBC Distribution Width CV 11.9 % (11.6-14.6); RBC Distribution Width SD 36.1 fl (35.1-43.9); Red Blood Count 4.43 M/mm3 (4.2-5.4); White Blood Count 11.9 K/mm3 (4.4-11.0)
[2020-09-21 17:52] LABS: Amphetamine Urine VISTA NEGATIVE (<1000 ng/mL); Barbiturate Urine VISTA NEGATIVE (< 200 ng/mL); Benzodiazepine Urine VISTA NEGATIVE (< 200 ng/mL); Cocaine Urine VISTA NEGATIVE (< 300 ng/mL); Ecstacy Urine VISTA NEGATIVE (< 500 ng/mL); Methadone Urine VISTA NEGATIVE (< 300 ng/mL); PCP Urine VISTA NEGATIVE (< 25 ng/mL); THC Urine VISTA NEGATIVE (< 50 ng/mL); Vista UDS pH Range 5
[2020-09-22 09:04] LABS: HIV - WCH Non-Reactive (Nonreactive); Hepatitis B Surface Antigen Non-Reactive (Nonreactive); Hepatitis C Antibody Non-Reactive (Nonreactive); Rubella IgG Reactive (Nonreactive); Syphilis Antibodies Non-reactive
[2020-09-23 20:08] LABS: Chlamydia By Nucleic Acid AMP Negative (Negative)
[2020-09-23 20:25] LABS: Gonococcus By Nucleic Acid AMP Negative (Negative)
== END ==
PROVIDERS: PCP Family Medicine; Referring Provider Obstetrics & Gynecology; Visit Provider Obstetrics & Gynecology
DX: Z34.80 Encounter for supervision of other normal pregnancy, unspecified trimester (principal)
CPT/HCPCS: 36415; 80307; 85025; 86703; 86762; 86780; 86803; 86850; 86900; 86901; 87086; 87088; 87340; 87491; 87591

== ENCOUNTER → 2021-02-02 09:42 | Outpatient (CLI) | payer OTHER, SELFPAY ==
[2021-02-02 10:08] LABS: Absolute Lymphocyte Count 1.62 X10^3/uL (0.83-4.51); Absolute Neutrophil Count 7.7 X10^3/uL (2.0-7.7); Basophil# 0.01 X10^3/uL; Basophil% 0.1 % (0-1); Hematocrit 34.4 % (37-47); Hemoglobin 11.5 g/dL (12.0-15.0); Lymphocyte # 1.62 X10^3/ul (0.83-4.51); Lymphocyte % 15.4 % (19-41); Mean Corp Hgb Conc 33.4 g/dL (32-36); Mean Corpuscular Hgb 28.4 pg (27.0-32.0); Mean Corpuscular Volume 84.9 fL (81-99); Mean Platelet Vol. 9.3 fl (6.2-12.0); Monocyte# 0.95 X10^3/uL; Monocyte% 9.1 % (0-10); NRBC Flagged by Analyzer 0 % (0-5); Neutrophil # 7.74 X10^3/uL (2.7-7.7); Neutrophil % 73.7 % (47-70); Platelet Count 296 K/mm3 (150-450); RBC Distribution Width CV 12.4 % (11.6-14.6); RBC Distribution Width SD 37.8 fl (35.1-43.9); Red Blood Count 4.05 M/mm3 (4.2-5.4); White Blood Count 10.5 K/mm3 (4.4-11.0)
[2021-02-02 10:21] LABS: Glucose Challenge Gest 1H 50g 165 mg/dL (70-140)
== END ==
PROVIDERS: PCP Family Medicine; Referring Provider Obstetrics & Gynecology; Visit Provider Obstetrics & Gynecology
DX: Z34.80 Encounter for supervision of other normal pregnancy, unspecified trimester (principal); Z13.1 Encounter for screening for diabetes mellitus
CPT/HCPCS: 36415; 82950; 85025

== ENCOUNTER 2021-02-12 06:43 | Outpatient (CLI) | payer OTHER, SELFPAY ==
[2021-02-12 07:43] LABS: Glucose GTT-Gestation. Fasting 84 mg/dL (<105)
[2021-02-12 09:02] LABS: Glucose GTT-Gestational 1 Hr 182 mg/dL (<190)
[2021-02-12 10:06] LABS: Glucose GTT-Gestational 2 Hr 167 mg/dL (<165)
[2021-02-12 11:53] LABS: Glucose GTT-Gestational 3 Hr 132 L (<145)
== END 2021-02-12 23:59 | disposition short-term general hospital (02) ==
LOC: LAB 06:45
PROVIDERS: PCP Family Medicine; Referring Provider Obstetrics & Gynecology; Visit Provider Obstetrics & Gynecology
DX: Z13.1 Encounter for screening for diabetes mellitus (principal)
CPT/HCPCS: 36415; 82951; 82952

== ENCOUNTER 2021-02-14 18:10 | Outpatient (CLI) | payer OTHER, SELFPAY ==
[2021-02-14 18:29] VITALS: BP_SYST 112; PULSE 82; TEMP 36.6; O2SAT 98
[2021-02-14 18:30] VITALS: BP 112/59; PULSE 82; TEMP 36.4
[2021-02-14] MEDS: Lactated Ringers 1,000 ML 999 ML IV ×2 (19:10→21:00)
[2021-02-14] MEDS: Loperamide 2 MG Capsule 4 MG PO (19:11)
[2021-02-14] MEDS: Ondansetron 4 MG/2 ML Vial IV (19:12)
[2021-02-14 20:38] LABS: Red Blood Cells-Urine 0 SEEN /hpf (0-5); White Blood Cells 0 SEEN /hpf (0-5)
[2021-02-14 20:39] LABS: Color, Urine Yellow (Yellow); Glucose, Dipstick Normal (Normal); Leukocyte Esterase-Dipstick Negative /ul (Negative); Nitrite-Dipstick Negative (Negative); Occult Blood-Urine Negative /ul (Negative); Protein-Dipstick 30 mg/dl (Negative); Urine Bilirubin Dipstick Negative (Negative); Urine Clarity Sl. Cloudy (Clear); Urine Urobilinogen 1 mg/dl (Normal); Urine pH 6.5 (5.0 - 8.0)
[2021-02-14 20:45] LABS: Ketone-Dipstick 150 mg/dl (Negative)
[2021-02-14 20:46] LABS: Bacteria RARE /hpf (None Seen); Calcium Oxalate Crystals Ur 1+ /hpf (<or=2+); Mucous, Urine RARE /hpf (<or=2+); Squamous Epithelial Cells - UA 5-10 SEEN /hpf (5-10)
[2021-02-14 22:10] VITALS: BP 108/56; PULSE 88; TEMP 36.9
[2021-02-14 22:11] VITALS: PULSE 87; O2SAT 99
--- NOTE | 2021-02-18 16:27 | OB.TRI.HP_ITS ---
HPI - General HPI Narrative CHAPINCITO KIM, is a 30 y/o @ 29 weeks 5 day who presents to L&D with the complaint of nausea, vomiting, and diarrhea. She denies labor contractions, loss of fluid, vaginal bleeding, or dec fm. Maternal Data Information ISIDRO Calculator Estimated Delivery Date Method Current WG Current Estimate 04/27/21 LMP (Certain) 30w 2d PFSH PFS Medical History (Updated 02/18/21 @ 16:[address] Aster Mays, DO) Anxiety Back pain Chronic eczema Depression Fatigue Hemorrhoids Migraines SOB (shortness of breath) Home Medications prenat.vits,tena,qll-pcxg-gvpxx 1 tab PO QDAY 08/02/17 [History Last Taken 02/11/21 20:00] ferrous sulfate 325 mg PO DAILY 03/19/18 [History Last Taken 02/07/21 20:00] sertraline 100 mg tablet 100 mg PO DAILY #90 tab 01/08/21 [Rx Last Taken 02/13/21 20:00] blood sugar diagnostic #100 ea 02/14/21 [Rx Last Taken Unknown] blood-glucose meter #1 ea 02/14/21 [Rx Last Taken Unknown] Allergy/AdvReac Type Severity Reaction Status Date / Time No Known Allergies Allergy Verified 02/17/21 08:20 Family History Father Heart disease Mother Breast cancer, Onset Age: 48 Stage 2 Diabetes Heart disease CVA (cerebral vascular accident) Grandmother Heart disease Other Arthritis Lung disease Surgical History History of tonsillectomy and adenoidectomy (~2004) Social History adopted: No household members: spouse and children housing: house number of children: 1 current occupational status: employed 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 pets and animals: No leisure activities: exercise history of recent travel: No Smoking Status: Never smoker second hand exposure: No alcohol intake: current details: every day- glass of wine; not while substance use type: does not use well-balanced diet: daily or most days caffeine: Yes during the past year weight has: remained stable what type of physical activity do you participate in: walking frequency: 3-4 times per week seatbelt use: always do you feel safe at home: Yes additional social history: - 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 Date Name GA/Weeks Outcome Route Bth Weight Infant Gen Labor Lgth Anesthesia Del Locatn Provider FOB 03/20/18 [place] 40 live - full term 7lb 12o z Male epidural [facility] Visit Details Expected Delivery Route/Plan Labor Preferences- labor support person: [] labor intervention preferences: [] pain management options preferred: [] cut cord/dad catch: [] : [] PP control planned: [] discussed possible routes of delivery and associated risks: [] special requests: [] Plans Covid status: vaccinated Flu vaccine: given Tdap vaccine: given Rhogam: na LARC form signed: [] Problem list reviewed and updated with the most current plan of care details and appropriate orders placed. Relevant counseling for the gestational age provided. Continue routine care and follow up unless otherwise noted in visit notes/problem list details OB Flowsheet Initial Weight: Not Recorded Date -?-?-?-?-?-?-?-?-?-?-?-?- EGA Weight BP Urine Prot -?-?-?-?-?-?-?-?-?-?-?-?- Glucose FHR FuHt Pres Dilation -?-?-?-?-?-?-?-?-?-?-?-?- Effaced St Visit Note 09/21/20 -?-?-?-?-?-?-?-?-?-?-?-?- 8w 6d 172 lb 4 oz 112/70 -?-?-?-?-?-?-?-?-?-?-?-?- 175 -?-?-?-?-?-?-?-?-?-?-?-?- GP - CRL 21mm co nsistent with LMP 10/19/20 -?-?-?-?-?-?-?-?-?-?-?-?- 12w 6d 161 lb 116/62 Negative -?-?-?-?-?-?-?-?-?-?-?-?- Negative 160 -?-?-?-?-?-?-?-?-?-?-?-?- SM- no vb pedritoi ng reviewed labs 11/17/20 -?-?-?-?-?-?-?-?-?-?-?-?- 17w 0d 162 lb 4 oz 118/60 Nega tive -?-?-?-?-?-?-?-?-?-?-?-?- Negative 161 -?-?-?-?-?-?-?-?-?-?-?-?- MH-NO VB, LOF. Feeling flutters. Plan flu vaccine next visit. 11/2612/15/20 -?-?-?-?-?-?-?-?-?-?-?-?- 21w 0d 163 lb 120/60 Negative -?-?-?-?-?-?-?-?-?-?-?-?- Negative 150 -?-?-?-?-?-?-?-?-?-?-?-?- SM- no vb lof go od fm no reuglar ctx got booster shot, some round ligament pain 01/08/21 -?-?-?-?-?-?-?-?-?-?-?-?- 24w 3d 168 lb 100/80 -?-?-?-?-?-?-?-?-?-?-?-?- 150 -?-?-?-?-?-?-?-?-?-?-?-?- SM- having irrat ional thinking, anxiety, was out of zoloft for a week, restarted today now. vistaril given 02/01/21 -?-?-?-?-?-?-?-?-?-?-?-?- 27w 6d 166 lb 8 oz 106/64 Nega tive -?-?-?-?-?-?-?-?-?-?-?-?- Negative 150 28 -?-?-?-?-?-?-?-?-?-?-?-?- Sm- no vb lof go od fm nor egular ctx gct tomorrow had fu us and placenta moved per patient 02/14/21 -?-?-?-?-?-?-?-?-?-?-?-?- 29w 5d 159 lb 2.78 oz 112/5 9 108/56 30 mg/dl (Negative) H -?-?-?-?-?-?-?-?-?-?-?-?- -?-?-?-?-?-?-?-?-?-?-?-?- 02/17/21 -?-?-?-?-?-?-?-?-?-?-?-?- 30w 1d 167 lb 110/70 Trace -?-?-?-?-?-?-?-?-?-?-?-?- Negative 140 31 -?-?-?-?-?-?-?-?-?-?-?-?- SM- no vb lof go od fm no regular nl 3 hr gtt ROS Constitutional Constitutional: Reports systems reviewed and no addt'l complaints, except as documented Gastrointestinal Gastrointestinal: Denies bloating, constipation, cramping, diarrhea, nausea or vomiting Genitourinary Genitourinary: Reports other Details: Denies vaginal odor, vaginal bleeding, or vaginal discharge ; Denies difficulty urinating or flank pain Physical Exam HEENT normocephalic Resp normal respiratory effort and normal air movement no CVA tenderness Extremity normal to inspection General Extremity: edema bilateral (trace ) NST FHR Rate Baby A Baseline: 150 Variability:: Moderate Accelerations:: 15 x 15 Decelerations:: None NST Reactive:: Yes FHR Category:: Category I Assessment & Plan (1) Nausea and vomiting: PLAN: pt was given imodium, zofran, and IV fluids. She was hydrated for a total of 3 hours and felt better. She was then discharged to home -plan to keep OB appt in 1 week Charges/Coding Multi Select Codes Visit Charges Office Visit/Consults: 77101 OV L3 Est Urinary/Genital Urinary/Genital CPT Codes: 63957-61 non-stress test Interp
== END 2021-02-14 23:59 | disposition home or self-care (01) ==
LOC: WPOUT 18:22 → WP 18:23
PROVIDERS: PCP Family Medicine; Visit Provider Obstetrics & Gynecology
DX: O21.2 Late vomiting of pregnancy (principal); O99.340 Other mental disorders complicating pregnancy, unspecified trimester; F32.A Depression, unspecified; F41.9 Anxiety disorder, unspecified; Z3A.29 29 weeks gestation of pregnancy; Z79.899 Other long term (current) drug therapy
CPT/HCPCS: 96374; 96361 ×2; 59025; 59050; 81001; 87426; 87804; 99218; J7120; G0378; J2405

== ENCOUNTER 2021-03-30 12:13 | Outpatient (CLI) | payer OTHER, SELFPAY ==
--- NOTE | 2021-03-30 12:15 | US_ITS ---
STUDY: SECOND AND THIRD TRIMESTER OBSTETRICAL ULTRASOUND - LIMITED REASON FOR EXAM: Female, 30 years old growth LMP: 07/21/2020. PRIOR ULTRASOUND: None. TECHNIQUE: Transabdominal TECHNICAL QUALITY: Adequate. FINDINGS: There is a single intrauterine fetus. The fetus is in a cephalic presentation. There is demonstrated cardiac activity with a heart rate of 147 bpm. There is a normal amniotic fluid volume. The largest amniotic fluid pocket measures 4.1 cm. The amniotic fluid index (BARBARA) is 14.3 cm. The placenta is posterior in location and is not low lying. There are Grade 0 placental changes. The cervix measures 3.65 cm in length. BIOMETRY: BPD: 8.48 cm: 34 weeks, 1 days HC: 31.51 cm: 34 weeks, 2 days AC: 32.37 cm: 36 weeks, 2 days FL: 6.7 cm: 34 weeks, 3 days Age by LMP: 36 weeks, 0 days. ISIDRO by LMP: 04/28/2019. age by current US: 35 weeks, 0 days. ISIDRO by current US: 05/04/2021. Estimated weight: 2707 grams, +/- 406 grams, 39 percentile. US/OB Limited With Biometrics IMPRESSION: Single live intrauterine gestation with a mean gestational age of 35 weeks. Electronically Signed: Hasmukh Gayle MD at 14:07 EST ,
== END 2021-03-30 23:59 | disposition home or self-care (01) ==
LOC: OPUS 12:14
PROVIDERS: PCP Family Medicine; Visit Provider Obstetrics & Gynecology
DX: O24.410 Gestational diabetes mellitus in pregnancy, diet controlled (principal)
CPT/HCPCS: 76816

== ENCOUNTER 2021-04-05 13:27 | Outpatient (CLI) | payer OTHER, SELFPAY | END 2021-04-05 23:59 | disposition home or self-care (01) | LOC: LABSPEC 04-21 13:27 | PROVIDERS: PCP Family Medicine; Visit Provider Obstetrics & Gynecology | DX: Z34.93 Encounter for supervision of normal pregnancy, unspecified, third trimester (principal); Z3A.36 36 weeks gestation of pregnancy | CPT/HCPCS: 87081 ==

== ENCOUNTER 2021-04-25 01:45 | Inpatient (IN) | payer OTHER, SELFPAY ==
[2021-04-25] VITALS (76 sets, daily range): BP systolic 100–122; BP diastolic 50–71; PULSE 70–110; RESP 16; TEMP 36–36.9; O2SAT 93–100; BMI 25.7
[2021-04-25] MEDS: Lactated Ringers 500 ML 999 ML IV (03:00)
[2021-04-25] MEDS: Oxytocin 30 units/NS 500 ml 30 UNITS/500 ML IV.SOLN 334 UNITS IV (03:06)
[2021-04-25 03:15] LABS: Absolute Lymphocyte Count 3.02 X10^3/uL (0.83-4.51); Absolute Neutrophil Count 10.4 X10^3/uL (2.0-7.7); Basophil# 0.02 X10^3/uL; Basophil% 0.1 % (0-1); Eosinophil# 0.14 X10^3/uL; Eosinophils% 0.9 % (0-5); Hematocrit 37.8 % (37-47); Hemoglobin 12.9 g/dL (12.0-15.0); Lymphocyte # 3.02 X10^3/ul (0.83-4.51); Lymphocyte % 19.9 % (19-41); Mean Corp Hgb Conc 34.1 g/dL (32-36); Mean Corpuscular Hgb 28.2 pg (27.0-32.0); Mean Corpuscular Volume 82.5 fL (81-99); Mean Platelet Vol. 10.2 fl (6.2-12.0); Monocyte# 1.53 X10^3/uL; Monocyte% 10.1 % (0-10); NRBC Flagged by Analyzer 0 % (0-5); Neutrophil # 10.36 X10^3/uL (2.7-7.7); Neutrophil % 68.5 % (47-70); POSITIVE DIFFERENTIAL YES; Platelet Count 319 K/mm3 (150-450); RBC Distribution Width CV 12.4 % (11.6-14.6); RBC Distribution Width SD 37.3 fl (35.1-43.9); Red Blood Count 4.58 M/mm3 (4.2-5.4); White Blood Count 15.1 K/mm3 (4.4-11.0)
[2021-04-25] MEDS: Ondansetron 4 MG/2 ML Vial IV (03:22)
[2021-04-25 03:26] LABS: Bedside Glucose 96 mg/dL (74-106)
[2021-04-25] MEDS: Lactated Ringers 1,000 ML 200 ML IV (03:31)
[2021-04-25 03:43] LABS: Differential Comment SCANNED; Differential Indicated SCAN CRITERIA MET; Platelet Estimate ADEQUATE (ADEQ)
[2021-04-25] MEDS: fentaNYL-bupivacaine (epidural) 100 ML BAG EPIDURAL (04:13)
--- NOTE | 2021-04-25 05:16 | HP.PCM.OB_ITS ---
HPI - General General Date of Admission: 04/25/21 HPI Narrative CHAPINCITO KIM, is a 30 y/o @ 39 weeks 5 days who presents to L&D with painful contractions and requesting an epidural. She has gestational diabetes that is diet controlled and h/o prior . Maternal Data Information ISIDRO Calculator Estimated Delivery Date Method Current WG Current Estimate 04/27/21 LMP (Certain) 39w 5d PFSH PFS Medical History Anxiety Back pain Chronic eczema Depression Fatigue Hemorrhoids Migraines SOB (shortness of breath) Home Medications prenat.vits,tena,rnw-jpea-dyccs 1 tab PO QDAY 08/02/17 [History Last Taken 07/28 20:00] ferrous sulfate 325 mg PO DAILY 03/19/18 [History Last Taken 02/07/21 20:00] sertraline 100 mg tablet 100 mg PO DAILY #90 tab 01/08/21 [Rx Last Taken 04/24/21 20:00] blood sugar diagnostic #100 ea 02/14/21 [Rx Last Taken Unknown] blood-glucose meter #1 ea 02/14/21 [Rx Last Taken Unknown] blood sugar diagnostic #200 ea 03/15/21 [Rx Last Taken Unknown] lancets 33 gauge #100 ea 03/15/21 [Rx Last Taken Unknown] Benadryl 04/25/21 [History Last Taken 04/24/21 20:15] Allergy/AdvReac Type Severity Reaction Status Date / Time No Known Allergies Allergy Verified 03/15/21 16:22 Family History Father Heart disease Mother Breast cancer, Onset Age: 48 Stage 2 Diabetes Heart disease CVA (cerebral vascular accident) Grandmother Heart disease Other Arthritis Lung disease Surgical History History of tonsillectomy and adenoidectomy (~2004) Social History adopted: No household members: spouse and children housing: house number of children: 1 current occupational status: employed 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 pets and animals: No leisure activities: exercise history of recent travel: No Smoking Status: Never smoker second hand exposure: No alcohol intake: current details: every day- glass of wine; not while substance use type: does not use well-balanced diet: daily or most days caffeine: Yes during the past year weight has: remained stable what type of physical activity do you participate in: walking frequency: 3-4 times per week seatbelt use: always do you feel safe at home: Yes additional social history: - 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 Date Name GA/Weeks Outcome Route Bth Weight Gen Labor Lgth Anesthesia Del Locatn Provider FOB 03/20/18 [place] 40 live - full term 7lb 12o z Male epidural WC EDITH Visit Details Expected Delivery Route/Plan Labor Preferences- labor support person: augusto labor intervention preferences: none pain management options preferred: epidural cut cord/dad catch: yes : yes PP control planned: [] discussed possible routes of delivery and associated risks: [] special requests: [] Plans Covid status: vaccinated Flu vaccine: given Tdap vaccine: given Rhogam: na LARC form signed: declined movement and labor precautions reviewed. Problem list reviewed and updated with the most current plan of care details and appropriate orders placed. Relevant counseling for the gestational age provided. Continue routine care and follow up unless otherwise noted in visit notes/problem list details OB Flowsheet Initial Weight: Not Recorded Date -?-?-?-?-?-?-?-?-?-?-?-?- EGA Weight BP Urine Prot -?-?-?-?-?-?-?-?-?-?-?-?- Glucose FHR FuHt Pres Dilation -?-?-?-?-?-?-?-?-?-?-?-?- Effaced St Visit Note 09/21/20 -?-?-?-?-?-?-?-?-?-?-?-?- 8w 6d 172 lb 4 oz 112/70 -?-?-?-?-?-?-?-?-?--?-?-?- 175 -?-?-?-?-?-?-?-?-?-?-?-?- GP - CRL 21mm co nsistent with LMP 10/19/20 -?-?-?-?-?-?-?-?-?-?-?-?- 12w 6d 161 lb 116/62 Negative -?-?-?-?-?-?-?-?-?-?-?-?- Negative 160 -?-?-?-?-?-?-?-?-?-?-?-?- SM- no vb crampi ng reviewed labs 11/17/20 -?-?-?-?-?-?-?-?-?-?-?-?- 17w 0d 162 lb 4 oz 118/60 Nega tive -?-?-?-?-?-?-?-?-?-?-?-?- Negative 161 -?-?-?-?-?-?-?-?-?-?-?-?- MH-NO VB, LOF. Feeling flutters. Plan flu vaccine next visit. US 11/2612/15/20 -?-?-?-?-?-?-?-?-?-?-?-?- 21w 0d 163 lb 120/60 Negative -?-?-?-?-?-?-?-?-?-?-?-?- Negative 150 -?-?-?-?-?-?-?-?-?-?-?-?- SM- no vb lof go od fm no reuglar ctx got booster shot, some round ligament pain 01/08/21 -?-?-?-?-?-?-?-?-?-?-?-?- 24w 3d 168 lb 100/80 -?-?-?-?-?-?-?-?-?-?-?-?- 150 -?-?-?-?-?-?-?-?-?-?-?-?- SM- having irrat ional thinking, anxiety, was out of zoloft for a week, restarted today now. vistaril given 02/01/21 -?-?-?-?-?-?-?-?-?-?-?-?- 27w 6d 166 lb 8 oz 106/64 Nega tive -?-?-?-?-?-?-?-?-?-?-?-?- Negative 150 28 -?-?-?-?-?--?-?-?-?-?-?-?- Sm- no vb lof go od fm nor egular ctx gct tomorrow had fu us and placenta moved per patient 02/14/21 -?-?-?-?-?-?-?-?-?-?-?-?- 29w 5d 159 lb 2.78 oz 112/5 9 108/56 30 mg/dl (Negative) H -?-?-?-?-?-?-?-?-?-?-?-?- -?-?-?-?-?-?-?-?-?-?-?-?- 02/17/21 -?-?-?-?-?-?-?-?-?-?-?-?- 30w 1d 167 lb 110/70 Trace -?-?-?-?-?-?-?-?-?-?-?-?- Negative 140 31 -?-?-?-?-?-?-?-?-?-?-?-?- SM- no vb lof go od fm no regular nl 3 hr gtt 03/01/21 -?-?-?-?-?-?-?-?-?-?-?-?- 31w 6d 163 lb 4 oz 120/64 Nega tive -?-?-?-?-?-?-?-?-?-?-?-?- Negative 155 32 -?-?-?-?-?-?-?-?-?-?-?-?- SM- no vb lof go od fm no regular ctx 03/15/21 -?-?-?-?-?-?-?-?-?-?-?-?- 33w 6d 160 lb 8 oz 120/82 Nega tive -?-?-?-?-?-?-?-?-?-?-?-?- Negative 140 34 -?-?-?-?-?-?-?-?-?-?-?-?- SM- no vb lof go od fm no regular ctx seeing endocrine right now. 03/29/21 -?-?-?-?-?-?-?-?-?-?-?-?- 35w 6d 164 lb 110/72 Negative -?-?-?-?-?-?-?-?-?-?-?-?- Negative 140 36 Cephalic -?-?-?-?-?-?-?-?-?-?-?-?- SM- no vb lof go od fm no regular ctx 04/05/21 -?-?-?-?-?-?-?-?-?-?-?-?- 36w 6d 165 lb 122/80 Negative -?-?-?-?-?-?-?-?-?-?-?-?- Negative 155 35 Cephalic 0 .5 -?-?-?-?-?-?-?-?-?-?-?-?- SM- no vb lof go od fm no regular ctx 04/12/21 -?-?-?-?-?-?-?-?-?-?-?-?- 37w 6d 165 lb 106/82 Negative -?-?-?-?-?-?-?-?-?-?-?-?- Negative 140 36 Cephalic -?-?-?-?-?-?-?-?-?-?-?-?- SM- no vb lof go od fm no rgular ctx BS controlled 04/19/21 -?-?-?-?-?-?-?-?-?-?-?-?- 38w 6d 163 lb 100/80 100/80 Negative -?-?-?-?-?-?-?-?-?-?-?-?- Negative 138 37 Cephalic 1 -?-?-?-?-?-?-?-?-?-?-?-?- 30 -3 MH-No VB, LOF. Good FM. Irreg BH. Plan IOL 04/26 per SM 04/25/21 -?-?-?-?-?-?-?-?-?-?-?-?- 39w 5d 159 lb 12.8 oz 111/6 3 120/67 122/66 114/67 103/53 102/55 102/58 102/54 106/57 114/56 108/55 -?-?-?-?-?-?-?-?-?-?-?-?- -?-?-?-?-?-?-?-?-?-?-?-?- ROS Constitutional Constitutional: Denies change in weight, fatigue, fever(s), headache(s), poor appetite or weakness Eyes Eyes: Denies blurry vision, change in vision, seeing flashes or spots in vision ENT HEENT: Denies dizziness, headache(s), loss taste/smell or sore throat Cardiovascular Cardiovascular: Denies chest pain, dizziness, dyspnea, irregular heart rhythm, leg edema, palpitations, rapid heart rate or vomiting Respiratory/Chest Respiratory/Chest: Denies chest tightness, cough, dyspnea or breast pain Gastrointestinal Gastrointestinal: Denies abdominal pain, anorexia, constipation, cramping, diarrhea, hemorrhoids, vomiting or weight changes Genitourinary Genitourinary: Denies dysuria, flank pain, genital lesions, genital pain, urinary frequency or urinary urgency Musculoskeletal Musculoskeletal: Denies back pain, difficulty walking, joint pain, limited range of motion, muscle cramps or numbness Integumentary Integumentary: Denies lesions or unusual bruising Neurologic Neurologic: Denies abnormal movements, abnormal speech, dizziness, numbness, seizure-like activity or syncope Psychiatric Psychiatric: Denies anxiety, behavioral changes, change in appetite, change in libido, cognitive impairment, confusion, depression, difficulty concentrating, hallucinations or suicidal thoughts Endocrine Endocrinology: Denies excessive sweating, polydipsia or polyuria Hematologic/Lymphatic Hematologic/Lymphatic: Denies easy bleeding, easy bruising or lymphadenopathy Allergic/Immunologic Allergic/Immunologic: Denies itchy eyes, lip swelling, seasonal rhinorrhea, rhinitis, throat swelling, tongue swelling, eczemia, wheezing or asthma Vital Signs Vital Signs Vital Signs: 04/25/21 00:55 04/25/21 01:01 04/25/21 03:21 Temperature 97.9 F 98.5 F Temperature Source Temporal Temporal Pulse Rate 87 106 H Blood Pressure 111/63 120/67 BP Systolic 111 120 BP Diastolic 63 67 Pulse Ox 97 99 04/25/21 03:39 04/25/21 03:59 04/25/21 04:03 Temperature Temperature Source Pulse Rate 76 80 79 Blood Pressure 122/66 H BP Systolic 122 BP Diastolic 66 Pulse Ox 99 98 04/25/21 04:04 04/25/21 04:07 04/25/21 04:09 Temperature Temperature Source Pulse Rate 86 74 76 Blood Pressure 114/67 BP Systolic 114 BP Diastolic 67 Pulse Ox 100 99 04/25/21 04:14 04/25/21 04:16 04/25/21 04:17 Temperature Temperature Source Pulse Rate 74 76 78 Blood Pressure 102/55 L BP Systolic 102 BP Diastolic 55 Pulse Ox 98 93 04/25/21 04:19 04/25/21 04:23 04/25/21 04:24 Temperature Temperature Source Pulse Rate 77 77 76 Blood Pressure 102/58 L BP Systolic 102 BP Diastolic 58 Pulse Ox 96 94 97 04/25/21 04:26 04/25/21 04:28 04/25/21 04:29 Temperature Temperature Source Pulse Rate 80 75 78 Blood Pressure 102/54 L BP Systolic 102 BP Diastolic 54 Pulse Ox 93 95 04/25/21 04:31 04/25/21 04:34 04/25/21 04:36 Temperature Temperature Source Pulse Rate 70 82 96 Blood Pressure 106/57 L 114/56 L BP Systolic 106 114 BP Diastolic 57 56 Pulse Ox 100 04/25/21 04:39 04/25/21 04:43 04/25/21 04:44 Temperature Temperature Source Pulse Rate 84 82 83 Blood Pressure 108/55 L BP Systolic 108 BP Diastolic 55 Pulse Ox 100 100 04/25/21 04:49 04/25/21 04:54 04/25/21 04:59 Temperature Temperature Source Pulse Rate 87 89 85 Blood Pressure BP Systolic BP Diastolic Pulse Ox 100 100 100 04/25/21 05:04 04/25/21 05:09 04/25/21 05:14 Temperature Temperature Source Pulse Rate 99 74 75 Blood Pressure BP Systolic BP Diastolic Pulse Ox 100 100 99 Weight Weight: 159 lb 12.8 oz Body Mass Index (BMI) 25.7 Physical Exam Const alert, oriented x3, no apparent distress and healthy appearing General Appearance: cooperative; Negative for anxious HEENT normocephalic Face and Sinus: normal facial exam Eyes EOMs intact bilaterally and no scleral icterus General Eye: normal appearance of both eyes Neck full ROM and supple Lymph Lymphatic: no lymphadenopathy noted Chest Chest: abnormal inspection of the chest Resp normal respiratory effort Effort and Inspection: able to speak in complete sentences Cardio regular rate GI soft to palpation and non-tender Inspection: gravid Palpation: soft; Negative for tender external exam normal Amniotic Fluid: ROM+plus Back/Spine no CVA tenderness Extremity normal to inspection, full ROM and no clubbing, cyanosis or edema General Extremity: Negative for calf tenderness or edema Skin Lesions: no lesions Rashes: no rashes Psych mental status grossly normal Labs Labs Labs: Blood Type A POSITIVE Antibody Screen NEGATIVE Hct 37.8 % (37-47) Hgb 12.9 g/dL (12.0-15.0) Obstetrics US Syphilis Total Ab Non-reactive Rubella IgG Antibody Reactive (Nonreactive) Hep Bs Antigen Non-Reactive (Nonreactive) Chlamydia DNA (BIRD) Negative (Negative) Neisseria gonorrhoeae DNA (BIRD) Negative (Negative) HIV 1&2 Antibody Non-Reactive (Nonreactive) Glucose 1 Hr 50 gm 165 mg/dL (70-140) H Rhogam given: No Assessment & Plan (1) Gestational diabetes mellitus (GDM): QUALIFIERS: Gestational diabetes mellitus control: diet-controlled Trimester: third trimester Qualified Code(s): O24.410 - Gestational diabetes mellitus in , diet controlled COMMENT: endo referral. diet controlled. growth us at 36. plan delivery by 39-40. 03/30 growth US nl (2) Supervision of other normal , antepartum: COMMENT: PRR ISIDRO 04/27/21 girl PC: [place]. Spouse:Augusto (3) : QUALIFIERS: Weeks of gestation: 38 weeks Qualified Code(s): Z3A.38 - 38 weeks gestation of COMMENT: GBS negative, declined ntd, genetic and carrier screen. Anatomy US normal (4) History of depression: COMMENT: on zoloft PLAN: Patient presents IAL, plan expectant management for , pitocin/AROM PRN if needed. Pain management: plans epidural. GBS negative. Management of any complications: gestational diabetes, diet controlled I have reviewed the [facility] and made any clinically relevant updates
--- NOTE | 2021-04-25 05:18 | OP.PCM_ITS ---
Maternal Data Information ISIDRO Calculator Estimated Delivery Date Method Current WG Current Estimate 04/27/21 LMP (Certain) 39w 5d Vaginal Delivery Maternal Presentation Maternal Presentation: Active Labor Operative Information Date of Procedure: 04/25/21 Pre-Operative Diagnosis: @39 weeks 5 days, Gestational diabetes, active labor Post-Operative Diagnosis: @39 weeks 5 days, Gestational diabetes, active labor, thick meconium stained fluid Surgery / Procedure Performed: Spontaneous Vaginal Delivery Type of Anesthesia: Epidural Estimated Blood Loss: 200cc Findings Description of Procedure: Patient received her epidural when she was 3 cm and after laid back was found to be complete. Membranes ruptured spontaneously and thick meconium stained fluid was present. She began pushing and delivered the head in the TALYA presentation. The head was delivered atraumatically and a loose nuchal cord ?1 was identified and easily reduced over the infant's head. The anterior and posterior shoulders delivered without complication followed by the rest of the infant and the infant was placed on the maternal abdomen. Delayed cord clamping was employed for approximately 60 seconds. Cord was clamped and cut and gentle traction was applied to the cord and the placenta delivered spontaneously immediately following it was noted to be intact with three-vessel cord. The perineum and vagina were inspected and noted to have a 1st degree perineal laceration. EBL was 200cc. Patient and infant tolerated delivery well. Presentation: Vertex Amniotic Fluid Description: Thick meconium Placental Delivery Description: Spontaneous Placenta Disposition: [facility] Cord Vessel Description: 3 Vessels Cord Entanglement: Around neck x 1, loose A Gender: Female (1 minute): 8 (5 minute): 9 Delayed Cord Clamping: No Post Vaginal Delivery Medications Given After Delivery: IV Pitocin Episiotomy Description: None Laceration: 1st degree Complication Complications: None Multi Select Codes Urinary/Genital Urinary/Genital CPT Codes: 57703 Vaginal Delivery [facility]
--- NOTE | 2021-04-25 05:21 | PCM.DC ---
Discharge Instructions Diet Discharge Diet: No restrictions Activity Discharge Activity: Return to Normal Activity, May Not Drive (while taking narcotic pain medications.) and May Shower May resume sexual activity in: 4-6 weeks Dressing / Incision Call your doctor if your incision/area has: Continuous Slow Oozing, Sudden Increased Bleeding, Increased Pain/ Swelling, Increased Redness and Foul Smelling Discharge Follow Up Care Please Follow Up With: Aster Mays DO When: Call [phone] to make an appointment with your doctor in 6 weeks. If you had elevated blood pressure or 4th degree laceration, you will need to be seen in 2 weeks. Test Results: Test results from this visit will be discussed in further detail at your follow-up appointment, if applicable. Discharge Plan Admission Admit Date/Time: 04/25/21 01:45 Primary Reason for Your Visit: spontaneous vaginal delivery Attending Provider: Aster Mays Primary Care Provider: Shawna Bermudez Discharge Orders/Prescriptions Prescriptions: New ibuprofen 800 mg tablet 800 mg PO Q8H PRN (Reason: pain) 7 Days Qty: 30 RF: 0 Continued prenat.vits,tena,jcd-upmc-bgutu [ Vitamin] tablet 1 tab PO QDAY RF: 0 (DME) OneTouch Verio test strips Strip See Rx Instructions .ROUTE .MEDSUPPLY Qty: 200 RF: 6 (DME) lancets [BD Ultra Fine Lancets] 33 gauge misc See Rx Instructions .ROUTE .MEDSUPPLY Qty: 100 RF: 5 ferrous sulfate 325 MG tablet 325 mg PO DAILY RF: 0 Benadryl RF: 0 sertraline [Zoloft] 100 mg tablet 100 mg PO DAILY Qty: 90 RF: 4 (DME) Truetrack Test Strip See Rx Instructions .ROUTE .MEDSUPPLY Qty: 100 RF: 4 (DME) blood-glucose meter [Truetrack Blood Glucose System] Kit See Rx Instructions .ROUTE .MEDSUPPLY Qty: 1 RF: 0 Referrals / Follow Up: Shawna Bermudez MD [Primary Care Provider] - Disposition Disposition (needs filled in before D/C Order can be placed): Home, Self Care
--- NOTE | 2021-04-25 05:40 | NURSING ---
Pt mentioned son has pink eye and her lt eye reddened with drainage. Educated pt on hand hygiene prior to holding and nursery RN made aware, medications to be given as soon as possible.
[2021-04-25 07:21] LABS: Bedside Glucose 153 mg/dL (74-106)
[2021-04-25] MEDS: Acetaminophen 500 MG Tablet 1000 MG PO ×2 (07:36→14:10)
[2021-04-25] MEDS: Ferrous Sulfate 325 MG Tablet PO (14:10)
[2021-04-25] MEDS: Sertraline 100 MG Tablet PO (14:10)
[2021-04-25] MEDS: Prenatal Vits Tablet 1 TABLET PO (14:11)
[2021-04-25] MEDS: Neomycin/Polymyxin/Dexameth 5ML OPTH.BTL 2 DRP EACH EYE (20:06)
[2021-04-25] MEDS: AMOXICILLIN 500 MG CAPSULE PO (20:06)
[2021-04-26 00:08] VITALS: BP 115/63; PULSE 85; TEMP 36.4
[2021-04-26 00:09] VITALS: BP 115/63; PULSE 85; RESP 16; TEMP 36.4
[2021-04-26] MEDS: Neomycin/Polymyxin/Dexameth 5ML OPTH.BTL 2 DRP EACH EYE ×3 (00:09→07:35)
[2021-04-26 05:02] VITALS: BP 111/70; PULSE 76; TEMP 36.4
[2021-04-26 05:03] VITALS: BP 111/70; PULSE 76; RESP 16; TEMP 36.4
[2021-04-26 06:01] LABS: Bedside Glucose 72 mg/dL (74-106)
--- NOTE | 2021-04-26 06:06 | PN.OBGYN_ITS ---
Subjective Subjective Patient doing well without complaints. Tolerating PO. Ambulating and voiding without difficulty. Feeding well. Denies chest pain, shortness of breath, calf pain/swelling, fevers, chills, lightheadedness. she states that her eyes are feeling better, still has a cough and congestion however. She states that she is looking forward to going home today. Objective Data Objective Data Vital Signs: Vital Signs Temp Pulse Resp BP Pulse Ox 97.6 F L 76 16 111/70 97 04/26/21 05:03 04/26/21 05:03 04/26/21 05:03 04/26/21 05:03 04/25/21 16:29 Oxygen Delivery Method Room Air Weight: 159 lb 12.8 oz Body Mass Index (BMI) 25.7 Intake & Output: Intake and Output for Last 24 Hours 04/24/21 04/25/21 04/26/21 23:59 23:59 23:59 Intake Total 1310 / 1310 Balance 1310 / 1310 Lab / Micro Data Result Diagrams: 04/25/21 03:00 Labs: Laboratory Results - last 24 hr 04/25/21 07:04: POC Glucose 153 H 04/26/21 05:49: POC Glucose 72 L Micro: Microbiology 04/25/21 02:45 Nasal Secretion SARS-CoV-2 Antigen (Rapid) - Final ROS Constitutional Constitutional: Denies chills, fatigue, fever(s), poor appetite or weakness Eyes Eyes: Denies blurry vision, change in vision, seeing flashes or spots in vision ENT HEENT: Denies dizziness, headache(s), loss taste/smell or sore throat Cardiovascular Cardiovascular: Denies chest pain, dizziness, dyspnea, irregular heart rhythm, palpitations or rapid heart rate Respiratory/Chest Respiratory/Chest: Denies chest tightness, cough, dyspnea or breast pain Gastrointestinal Gastrointestinal: Denies abdominal pain, constipation or vomiting Genitourinary Genitourinary: Denies dysuria or flank pain Musculoskeletal Musculoskeletal: Denies difficulty walking, joint pain, limited range of motion or numbness Neurologic Neurologic: Denies abnormal movements, abnormal speech, dizziness, numbness, s eizure-like activity or syncope Psychiatric Psychiatric: Denies anxiety, behavioral changes, change in appetite, confusion, depression or suicidal thoughts Physical Exam Const alert, oriented x3 and no apparent distress General Appearance: cooperative and comfortable Resp normal respiratory effort Cardio regular rate GI normal to inspection, nondistended, normoactive bowel sounds GI Narrative: uterus is firm below umbilicus Palpation: soft Bimanual Exam - Adnexa, Other: Negative for cul-de-sac fullness Back/Spine no CVA tenderness and thoraco-lumbar ROM normal Extremity normal to inspection, no clubbing, cyanosis or edema, no calf tenderness and no pedal edema Psych mental status grossly normal, thought process normal, cooperative, affect norm al, speech normal, activity/motor behavior normal, denies homicidal ideation and denies suicidal ideation Assessment & Plan (1) Vaginal delivery: COMMENT: JV- baby girl [place] 1st degree laceration. GDMA1 (2) History of depression: COMMENT: on zoloft (3) Upper respiratory infection: COMMENT: with conjunctivitis PLAN: s/p PPD #1 1. routine post delivery care 2. breast feeding- support given 3. rh positive 4. rubella immune 5. continue amoxil and antibiotic eye drops 6. plan for dc to home today.
[2021-04-26 07:25] VITALS: BP 105/66; PULSE 85; TEMP 36.3
[2021-04-26 07:26] VITALS: BP 105/66; PULSE 85; RESP 15; TEMP 36.3
[2021-04-26] MEDS: Ferrous Sulfate 325 MG Tablet PO (07:35)
[2021-04-26] MEDS: Senna/Docusate Sodium 1 Tablet PO (07:35)
[2021-04-26] MEDS: Prenatal Vits Tablet 1 TABLET PO (10:09)
[2021-04-26] MEDS: AMOXICILLIN 500 MG CAPSULE PO (10:09)
[2021-04-26] MEDS: Sertraline 100 MG Tablet PO (10:09)
--- NOTE | 2021-04-26 12:00 | CASEMGMT ---
Social Work Assessment Labor and Delivery Unit Date of Referral: 04.25.2021 Time of Referral: 720 Referred By: Dr. Ely Date of Intervention: 04.26.2021 Reason for Referral: maternal history depression, anxiety, and depression. History obtained from: medical records, mother of baby (MOB) Marylu Mays, and father of baby (FOB) Augusto Mays Household composition: MOB, FOB, and older son Vadim. Home situation is reported as safe and adequate. Patient's parent/guardian status: MOB is a 30 year old female, to the FOB. MOB denies any abuse or safety concerns in the relationship with FOB. MOB and FOB now have 2 children together: Vadim (age 3) and baby girl Chelsi (born 04.25.2021). Medical History: RONALD is G2, P1 to 2 after delivering Chelsi. care good, starting at 8 weeks. weight 6 pounds 9 ounces. Apgars 8 and 9 at 1 and 5 minutes of life respectively. Educational Status: College with a degree in teaching. 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 FOB is self employed as a personal injury specialist, and also in the [employer]. Supplies: MOB reports to have all necessary supplies including safe sleep space and car seat. Childcare/Caregiver(s): MOB, FOB, and then for childcare the first year 's maternal grandparents. Transportation: No issues. Programs/Agencies Involved: Julissa Mariano PhD for therapy. Children Services/Legal Issues: None. Behavioral Health Issues: Mental Health History: Maternal history of depression, anxiety, and depression. MOB reports noticed the depression around 8 weeks with Vadim. After talking about mood and thoughts with , MOB sought further support. Started counseling and is now on Zoloft with plan to remain on this in the timeframe. MOB reports had an insurance/pharmacy issue during the prompting MOB to be without the Zoloft for 2 weeks. MOB reports had worsen anxiety during that time and felt much better once the medication was restarted. Denies any history of thoughts, plans, intent for suicide. Denies thoughts of harm to others, including or Vadim. Substance Use History: Denies any concerns, and no use during . Family History: Not discussed. Drug Screens: None noted in the record. Family/Social Stressors: Covid a stressor in the last year. No other stressors identified. Support Systems: MOB reports to have a good support from FOB, family, and friends. FOB works from home and will be available to help. MOB's parents are also available to help if needed. ASSESSMENT: Met with MOB and FOB in room, introducing to self and social work role. FOB stepped into the bathroom at one point and able inquire if okay to talk about mental health with the FOB present, as well as to inquire about safety concerns/abuse. MOB denied abuse and reported okay to talk about anything with the FOB present. During conversation MOB and FOB both participated in conversation. MOB repots to intent to remain in counseling, and to have and appointment in 6 weeks. Reports plan to stay on medication. MOB and FOB reported awareness of the importance of communicating with one another. No concerns with basic needs reported. No concerns reported by nursing regarding parent/child interactions and bonding. Provided MOB and FOB with information on mood and and anxiety disorders for home going. PLAN: MOB and to home. Resources provided for home going. No other services requested or indicated. -GOPI Woo, DARCIE
[2021-04-26 14:41] LABS: Pathologist Review Reviewed
== END 2021-04-26 12:40 | disposition home or self-care (01) | DRG 807 ==
LOC: WPOUT 01:47 → WP 01:47
PROVIDERS: Admitting Provider Obstetrics & Gynecology; PCP Family Medicine; Visit Provider Obstetrics & Gynecology
DX: O24.420 Gestational diabetes mellitus in childbirth, diet controlled (principal); Z37.0 Single live birth; H10.9 Unspecified conjunctivitis; J06.9 Acute upper respiratory infection, unspecified; O99.53 Diseases of the respiratory system complicating the puerperium; O69.81X0 Labor and delivery complicated by cord around neck, without compression, not applicable or unspecified; O77.0 Labor and delivery complicated by meconium in amniotic fluid; Z20.822 Contact with and (suspected) exposure to COVID-19; Z3A.38 38 weeks gestation of pregnancy; Z3A.39 39 weeks gestation of pregnancy; Z79.899 Other long term (current) drug therapy
CPT/HCPCS: 59025; 59050; 82962; 85025; 86850; 86900; 86901; 87426; 99218; J7120; G0378; J2405

== ENCOUNTER → 2021-06-08 | Outpatient (CLI) | payer OTHER, SELFPAY ==
[2021-06-14 17:16] LABS: HPV APTIMA, High Risk Negative (Negative)
== END | disposition home or self-care (01) ==
LOC: LABSPEC 16:50
PROVIDERS: PCP Family Medicine; Referring Provider Obstetrics & Gynecology; Visit Provider Obstetrics & Gynecology
DX: Z12.4 Encounter for screening for malignant neoplasm of cervix (principal)
CPT/HCPCS: 87624; 88175; G0145